=== PATIENT | female | born 1960 | race Asian ===

== ENCOUNTER 2016-10-11 15:33 | Outpatient (CLI) | payer BC, OTHER | END 2016-10-11 15:34 | disposition home or self-care (01) | LOC: LABHHL 15:33 | PROVIDERS: ATTEND Internal Medicine Gastroenterology | DX: K21.9 Gastro-esophageal reflux disease without esophagitis (principal); K30 Functional dyspepsia; R49.0 Dysphonia; R05 Cough | CPT/HCPCS: 88305; 88312; 88342 ==